=== PATIENT | male | born 1945 | race African-American/Black ===

== ENCOUNTER 2018-04-26 08:12 | Emergency (ER) | payer OTHER ==
[2018-04-26 08:53] LABS: #Basophils 0.1 thou/uL (0.0-0.2); #Lymphocytes 0.6 thou/uL (1.20-3.40); #Neutrophils 14.1 thou/uL (1.40-6.50); %Basophils 0.3 % (0.0-1.0); %Eosinophils 0.1 % (0.0-10.0); %Lymphocytes 3.8 % (21.0-51.0); %Monocytes 6.6 % (0.0-10.0); %Neutrophils 89.2 % (42.0-75.0); Hemoglobin 15.9 g/dL (14.0-18.0); Mean Corpuscular HGB CONC 30.7 g/dL (32.0-36.0); Mean Corpuscular Hemoglobin 27.5 pg (27.0-31.0); Mean Corpuscular Volume 89.6 fL (78.0-98.0); Mean Platelet Volume 8.9 fL (7.4-10.4); Platelet Count 219 thou/uL (130-400); RBC Distribution Width 12.3 % (11.5-14.5); Red Blood Cell (RBC) Count 5.76 mill/uL (4.70-6.10); White Blood Cell (WBC) Count 15.8 thou/uL (4.8-10.8)
[2018-04-26] MEDS ORDERED: Ondansetron PF 4 MG/2 ML Vial ONE (09:15)
[2018-04-26 09:17] LABS: ALT (SGPT) 9 U/L (8-55); AST (SGOT) 16 U/L (5-34); Albumin 4.2 g/dL (3.4-4.8); Alkaline Phosphatase 67 U/L (40-150); Anion Gap 16 mmol/L (10-20); BUN (Urea Nitrogen) 13 mg/dL (8.4-25.7); Bilirubin, Total 0.9 mg/dL (0.2-1.2); CK (CPK) 338 U/L (30-200); Calc. Creatinine Clearance 0 mL/min (70-130); Calcium 9.5 mg/dL (7.8-10.44); Carbon Dioxide 21 mmol/L (23-31); Chloride 107 mmol/L (98-107); Estimated GFR-MDRD Greater than 90; Globulin 3.8 g/dL (2.4-3.5); Glucose 124 mg/dL (83-110); Lipase 12 U/L (8-78); Potassium 3.8 mmol/L (3.5-5.1); Sodium 140 mmol/L (136-145)
--- NOTE | 2018-04-26 10:14 | RAD ---
RIGHT SHOULDER 3 VIEWS: Date: 04/26/18 PROVIDED CLINICAL HISTORY: Right shoulder pain. FINDINGS: There is no evidence for fracture. The glenohumeral relationship appears normal. Subacromial space ap pears preserved. Visualized right lung field appears clear. IMPRESSION: Unremarkable right shoulder radiographs. POS: [facility]
--- NOTE | 2018-04-26 10:21 | RAD ---
PORTABLE CHEST: Date: 04/26/18 PROVIDED CLINICAL HISTORY: Syncope and vomiting. FINDINGS: Cardiac and mediastinal silhouette is within normal limits. Lungs appear clear. No pleural fluid or p neumothorax apparent. IMPRESSION: No evidence for an acute cardiopulmonary process. POS: [facility]
== END 2018-04-26 11:20 ==
LOC: ERS 08:12
DX: R55 Syncope and collapse (principal); R11.2 Nausea with vomiting, unspecified; I10 Essential (primary) hypertension; I25.10 Atherosclerotic heart disease of native coronary artery without angina pectoris; M19.90 Unspecified osteoarthritis, unspecified site; E11.9 Type 2 diabetes mellitus without complications; Z79.899 Other long term (current) drug therapy; Z79.84 Long term (current) use of oral hypoglycemic drugs; Z79.82 Long term (current) use of aspirin
CPT/HCPCS: 36415; 71045; 80053; 82550; 83690; 84484; 85025; 93005; 94760; 96361; 96374; J2405

== ENCOUNTER 2018-06-11 15:50 | Observation (INO) | payer OTHER ==
[2018-06-11 16:37] LABS: #Eosinphils 0.1 thou/uL (0.0-0.7); #Lymphocytes 0.9 thou/uL (1.20-3.40); #Monocytes 1.3 thou/uL (0.11-0.59); #Neutrophils 12.3 thou/uL (1.40-6.50); %Basophils 0.3 % (0.0-1.0); %Eosinophils 0.6 % (0.0-10.0); %Monocytes 8.7 % (0.0-10.0); %Neutrophils 84.5 % (42.0-75.0); Hemoglobin 14.5 g/dL (14.0-18.0); Mean Corpuscular HGB CONC 31.4 g/dL (32.0-36.0); Mean Corpuscular Hemoglobin 28.6 pg (27.0-31.0); Mean Corpuscular Volume 90.9 fL (78.0-98.0); Mean Platelet Volume 8.8 fL (7.4-10.4); Platelet Count 216 thou/uL (130-400); RBC Distribution Width 12.3 % (11.5-14.5); Red Blood Cell (RBC) Count 5.05 mill/uL (4.70-6.10); White Blood Cell (WBC) Count 14.6 thou/uL (4.8-10.8)
[2018-06-11] MEDS ORDERED: Morphine 4 MG/ML VIAL ONE (16:42)
[2018-06-11 16:44] LABS: Bilirubin Negative (Negative); Blood, Urine Negative (Negative); Clarity CLEAR (Clear); Glucose, Urine (Dipstick) Negative (Negative); Leukocyte Negative (Negative); Nitrite Negative (Negative); Protein, Urine (Dipstick) Trace mg/dL (Neg-Trace); Specific Gravity, Urine 1.019 (1.002-1.036); pH, Urine 6.5 (5.0-9.0)
--- NOTE | 2018-06-11 16:55 | RAD ---
CHEST 1 VIEW: Date: 06/11/18 HISTORY: Chest pain. COMPARISON: Radiograph dated 04/26/18. FINDINGS: Lungs are mildly hypoinflated with vascular crowding. Heart size mildly prominent. Mild ectasia of th e aorta. No focal air space consolidation, pneumothorax, or effusion. IMPRESSION: Chronic findings. No acute intrathoracic abnormality. POS: [facility]
[2018-06-11 17:25] LABS: ALT (SGPT) 10 U/L (8-55); AST (SGOT) 17 U/L (5-34); Albumin 3.8 g/dL (3.4-4.8); Alkaline Phosphatase 61 U/L (40-150); Anion Gap 15 mmol/L (10-20); BUN (Urea Nitrogen) 13 mg/dL (8.4-25.7); Bilirubin, Total 0.7 mg/dL (0.2-1.2); Calc. Creatinine Clearance 0 mL/min (70-130); Calcium 9.3 mg/dL (7.8-10.44); Carbon Dioxide 22 mmol/L (23-31); Chloride 108 mmol/L (98-107); Estimated GFR-MDRD Greater than 90; Globulin 3.6 g/dL (2.4-3.5); Glucose 126 mg/dL (83-110); Lipase 24 U/L (8-78); Magnesium 2.3 mg/dL (1.6-2.6); Potassium 3.6 mmol/L (3.5-5.1); Protein, Total 7.4 g/dL (5.8-8.1); Sodium 141 mmol/L (136-145)
--- NOTE | 2018-06-11 21:29 | PDOC.FPRHP ---
- History of Present Illness Chief Complaint: CP History of Present Illness: 72yo M with pmh of CAD and NM [facility]. Pt had onset of nausea and vomiting this morning and while walking to the [facility] also had CP and diaphoresis. Pain was relieved with nitro before transfer. Sharp in quality , moderate in severity, no radiation, only exacerbated by laying down. Pt reports hx of NM 3 years ago and that he had cath done but no stents placed. ED Course: nitro, morphine 4mg - Allergies/Adverse Reactions Allergies Allergy/AdvReac Type Severity Reaction Status Date / Time No Known Drug Allergies Allergy Verified 06/11/18 22:38 - Home Medications Medication Instructions Recorded Confirmed Type Aspirin [Aspir-Low] 81 mg PO DAILY 06/11/18 06/11/18 History Bismuth Subsalicylate 2 tab PO BID 06/11/18 06/11/18 History [Pepto-Bismol] Ibuprofen 600 mg PO BID PRN 06/11/18 06/11/18 History Lisinopril [Prinivil] 20 mg PO DAILY 06/11/18 06/11/18 History Loperamide HCl [Loperamide] 2 mg PO TID PRN 06/11/18 06/11/18 History Ranitidine HCl 150 mg PO BID 06/11/18 06/11/18 History metFORMIN [Glucophage] 500 mg PO BID-WM 06/11/18 06/11/18 History Atorvastatin Calcium 40 mg PO DAILY #90 tablet 06/12/18 Rx Hydrochlorothiazide 25 mg PO BID #180 tab 06/12/18 Rx Ondansetron [Zofran ODT] 4 mg PO Q6H PRN tab 06/12/18 Rx - History PMHx: CAD, DM, OA, NM, HTN, HLD PSHx: hernia FHx: NM in mother at age 108 and grandfather at age 110 Social: denies hx or current use of tobacco/etoh/drugs - Review of Systems General: denies: fever/chills, fatigue Eyes: denies: eye pain, vision changes ENT: denies: nasal congestion, rhinorrhea Respiratory: denies: congestion, shortness of breath Cardiovascular: reports: chest pain. denies: palpitation Gastrointestinal: denies: nausea, vomiting Genitourinary: denies: incontinence, dysuria Skin: denies: rashes, lesions Musculoskeletal: denies: pain, tenderness Neurological: denies: numbness, seizure Psychological: denies: anxiety, depression - Vital signs BP: [138/88] HR: [55] RR: [16] Tmax: [98.2] Pox: [100]% on [ra] Wt: [70kg] - Physical Exam Constitutional: NAD, awake, alert and oriented HEENT: normocephalic and atraumatic, EOMI, grossly normal vision, grossly normal hearing Neck: supple, trachea midline Chest: other (sharp cp reproducible on palp to sternum) Heart: RRR, normal S1/S2, other (grade 2/6 holosystolic murmur) Lungs: CTAB, no respiratory distress Abdomen: soft, non-tender Musculoskeletal: normal structure, normal tone Neurological: no focal deficit, normal sensation Skin: no rash/lesions, good turgor Heme/Lymphatic: no unusual bruising or bleeding, no purpura Psychiatric: normal mood and affect, good judgment and insight FMR H&P: Results - Labs Result Diagrams: 06/11/18 16:26 06/12/18 04:28 Lab results: WBC 14.6 thou/uL (4.8-10.8) H 06/11/18 16:26 Hgb 14.5 g/dL (14.0-18.0) 06/11/18 16:26 Hct 46.0 % (42.0-52.0) 06/11/18 16:26 MCV 90.9 fL (78.0-98.0) 06/11/18 16:26 Plt Count 216 thou/uL (130-400) 06/11/18 16:26 Neutrophils % 84.5 % (42.0-75.0) H 06/11/18 16:26 Sodium 141 mmol/L (136-145) 06/11/18 16:26 Potassium 3.6 mmol/L (3.5-5.1) 06/11/18 16:26 Chloride 108 mmol/L (98-107) H 06/11/18 16:26 Carbon Dioxide 22 mmol/L (23-31) L 06/11/18 16:26 BUN 13 mg/dL (8.4-25.7) 06/11/18 16:26 Creatinine 0.92 mg/dL (0.7-1.3) 06/11/18 16:26 Glucose 126 mg/dL (83-110) H 06/11/18 16:26 Calcium 9.3 mg/dL (7.8-10.44) 06/11/18 16:26 Total Bilirubin 0.7 mg/dL (0.2-1.2) 06/11/18 16:26 AST 17 U/L (5-34) 06/11/18 16:26 ALT 10 U/L (8-55) 06/11/18 16:26 Alkaline Phosphatase 61 U/L (40-150) 06/11/18 16:26 Serum Total Protein 7.4 g/dL (5.8-8.1) 06/11/18 16:26 Albumin 3.8 g/dL (3.4-4.8) 06/11/18 16:26 Lipase 24 U/L (8-78) 06/11/18 16:26 Urine Ketones Negative mg/dL (Negative) 06/11/18 16:15 Urine Blood Negative (Negative) 06/11/18 16:15 Urine Nitrite Negative (Negative) 06/11/18 16:15 Ur Leukocyte Esterase Negative (Negative) 06/11/18 16:15 FMR H&P: A/P - Problem List (1) Atypical chest pain Status: Acute Code(s): R07.89 - OTHER CHEST PAIN (2) DM type 2 (diabetes mellitus, type 2) Status: Acute (3) HTN (hypertension) Status: Acute Code(s): I10 - ESSENTIAL (PRIMARY) HYPERTENSION (4) HLD (hyperlipidemia) Status: Acute Code(s): E78.5 - HYPERLIPIDEMIA, UNSPECIFIED (5) History of NM (myocardial infarction) Status: Acute Code(s): I25.2 - OLD MYOCARDIAL INFARCTION - Plan Atypical CP likely 2/2 costochondritis vs GI vs ACS A- with hx and exam likely musculoskeletal in etiology but considering patient hx of NM and CAD will need R/O ACS. first trop negative. EKG showing t wave inversions in V5 and V6 but do not have old EKG to compare to. Mg is 2.3. P- continue ASA - trend trops - npo at midnight for stress test tomorrow - start famotidine - GI cocktail DM -home meds and SSI with accuchecks HTN -home meds OA -MD aware DIET: HH, npo at midnight FLUID: SL CODE: FULL DISPO: OBS, less than 2 midnights FMR H&P: Upper Level - Pertinent history 72 yo AADre [facility] with a CC of chest pain that started while walking at approximately 1200. was relived by nitro he received at the [facility]. Has PMH of NM with no stenting. PMH HTN, HLD. ER: labs, CXR, EKG, ASA given [facility], - Pertinent findings Vitals WNL GEN: NAD CV: RRR, no murmur Chest: TTP along 3-5 constrosternal joints and intracostal spaces. Pulm: CTA-B Labs: Trop negative x2 EKG: NSR, t wave inversions in V4-V6. No old EKG for comparison. CXR: No acute processes. - Plan Date/Time: 06/11/182128 I, Sen Murphy MD, have evaluated this patient and agree with findings/plan as outlined by staff internist office based only resident. Pertinent changes/additions are listed here. 1. Atypical chest pain r/o ACS: Trop negative x2, likely MSK related, NM stress test tomorrow, PRN nitro available. 2. Chronic conditions per [facility]ing Bag Filler note 3. PPX: lovenox 4. Diet: HH, NPO at 0001 5. CODE FULL Dispo: obs, tele, <[address] Nieto. Addendum - Attending - Attending Attestation Date/Time: 06/15/18 2601 I personally evaluated the patient and discussed the management with Dr. Robles on evening of admission. I agree with the History, Examination, Assessment and Plan documented above with any addition or exceptions noted below.
[2018-06-11] MEDS ORDERED: Dextrose 50% Abboject 50 ML SYRINGE SLOW IVP PRN (21:48)
[2018-06-11] MEDS ORDERED: Calcium Carbonate 500 MG ChewTAB PO PRN (21:48)
[2018-06-11] MEDS ORDERED: HumaLOG 300 UNITS/3 ML VIAL SC PRN (21:48)
[2018-06-11] MEDS ORDERED: Ondansetron PF 4 MG/2 ML Vial IVP PRN (21:48)
[2018-06-11] MEDS ORDERED: Dextrose 5% in Water 1,000 ML IV PRN (21:48)
[2018-06-11] MEDS ORDERED: Aspirin 325 MG TAB PO SCH (21:48)
[2018-06-11] MEDS ORDERED: Lidocaine 2% Viscous Solution 10 ML, Aluminum & Magnesium Hydroxide 30 ML SSW SCH (21:48)
[2018-06-11 22:05] LABS: Troponin I Less than 0.010 ng/mL (< 0.028)
[2018-06-11 22:08] VITALS: BMI 21.7
--- NOTE | 2018-06-11 22:40 | PDOC.EVN ---
Event Note - Event Note Event Note: Date/Time: 06/11/186 I personally evaluated the patient and discussed the management with Dr. Robles. H&P is pedning. I will sign when available. I agree with the History, Examination, Assessment and Plan as discussed. Chest pain evalaution underway. Serial troponins with stress planned for tomorrow.
[2018-06-12 00:06] LABS: Troponin I Less than 0.010 ng/mL (< 0.028)
[2018-06-12 05:28] LABS: Anion Gap 13 mmol/L (10-20); BUN (Urea Nitrogen) 9 mg/dL (8.4-25.7); Calc. Creatinine Clearance 81 mL/min (70-130); Carbon Dioxide 25 mmol/L (23-31); Cardiac Risk 2.5 (Less than 4.5); Chloride 107 mmol/L (98-107); Cholesterol 123 mg/dl (< 200 Desired); Estimated GFR-MDRD Greater than 90; Glucose 88 mg/dL (83-110); HDL Cholesterol 49 mg/dL (>60 Neg Risk); LDL Cholesterol, Calculated 67 mg/dL; Sodium 141 mmol/L (136-145); Triglycerides 37 mg/dL (Less than 150)
--- NOTE | 2018-06-12 06:51 | PDOC.FM ---
- Subjective Subjective: Patient reports current 9/10 chest pain but TTP in abdomen on exam this AM. Also reports nausea and 2 episodes of diarrhea that began this AM. Denies any hematochezia, melena or mucus in stool. - Objective MAR Reviewed: Yes Vital Signs & Weight: Vital Signs (12 hours) Temp Pulse Resp BP BP Pulse Ox 06/12/18 03:55 66 18 172/101 H 97 06/11/18 21:51 98.1 F 51 L 16 156/92 H 98 Weight Weight 70.806 kg Result Diagrams: 06/11/18 16:26 06/12/18 04:28 Phys Exam - Physical Examination Constitutional: NAD HEENT: moist MMs Neck: supple, full ROM Respiratory: no wheezing, no rales, no rhonchi, clear to auscultation bilateral Cardiovascular: RRR, no significant murmur Gastrointestinal: soft, positive bowel sounds TTP in epigatric area & B/L upper quadrants; no guarding or rebound Musculoskeletal: no edema, pulses present Neurological: non-focal, moves all 4 limbs Psychiatric: normal affect, A&O x 3 Skin: no rash, normal turgor Dx/Plan (1) Atypical chest pain Code(s): R07.89 - OTHER CHEST PAIN Status: Acute (2) DM type 2 (diabetes mellitus, type 2) Status: Acute (3) HLD (hyperlipidemia) Code(s): E78.5 - HYPERLIPIDEMIA, UNSPECIFIED Status: Acute (4) HTN (hypertension) Code(s): I10 - ESSENTIAL (PRIMARY) HYPERTENSION Status: Acute (5) History of DC (myocardial infarction) Code(s): I25.2 - OLD MYOCARDIAL INFARCTION Status: Acute - Plan Plan: Atypical CP 2/2 costochondritis vs GI vs ACS - History and exam this AM more suspicious for GI etiology; however, considering patient h/o DC and known CAD will r/o ACS. Trops negative x3. EKG on admission did show t wave inversions in V5 and V6 but do not have old EKG to compare to. Mg is 2.3. TSH pending. Will get a stat EKG & troponin this AM due to severity of pain patient is reporting this AM but suspect most likely 2/2 viral gastroenteritis given new nausea & diarrhea. Will give tylenol for pain due to stress test this AM. - Will continue ASA & famotidine - npo, meds with sips for stress test tomorrow DM -home meds and SSI with ACHS accuchecks HTN -home meds OA -MD aware, tylenol PRN for pain. CAD - Aware, will continue home meds. h/o DC - Aware, will continue home meds. DIET: npo, meds with sips IVFs: SL DVT PPx: lovenox GI PPx: famotidine Abx: none CODE: FULL DISPO: Likely d/c later today pending stress this AM. Addendum - Attending - Attending Attestation Date/Time: 06/12/18 1020 I personally evaluated the patient and discussed the management with Dr. Parker. I agree with the History, Examination, Assessment and Plan documented above with any addition or exceptions noted below. The patient presented with chest pain. He will have a stress test this morning. If negative will likely d/c. He had some nausea vomiting and diarrhea but he states he has not had anymore symptoms this morning.
[2018-06-12] MEDS: Ondansetron ODT 4 MG TAB PO PRN ×2 (08:34→16:58)
[2018-06-12] MEDS ORDERED: Aspirin 81 mg Enteric Coated Tablet PO SCH (09:00)
[2018-06-12] MEDS ORDERED: Famotidine 20 MG TAB PO SCH (09:00)
[2018-06-12] MEDS ORDERED: Enoxaparin Sodium 40 MG/0.4 ML SYRINGE SC SCH (09:00)
[2018-06-12] MEDS ORDERED: Hydrochlorothiazide 25 MG TAB PO SCH ×2 (09:00→16:15)
[2018-06-12] MEDS ORDERED: Lisinopril 20 MG TAB PO SCH (09:00)
[2018-06-12] MEDS ORDERED: Non-Formulary Item 1 EACH (Ranitidine Hcl [Ranitidine Hcl] 150 MG) PO SCH (09:00)
[2018-06-12] MEDS: metFORMIN 500 MG TAB PO SCH ×2 (09:19→16:59)
[2018-06-12] MEDS ORDERED: hydrALAZINE 20 MG/ML VIAL SLOW IVP PRN (09:27)
[2018-06-12] MEDS ORDERED: ADENOSINE 60 MG/20 ML VIAL ONE (10:07)
[2018-06-12 10:43] LABS: Troponin I Less than 0.010 ng/mL (< 0.028)
--- NOTE | 2018-06-12 15:03 | EKG ---
Test Reason : ? Blood Pressure : / mmHG Vent. Rate : 061 BPM Atrial Rate : 061 BPM P-R Int : 180 ms QRS Dur : 090 ms QT Int : 412 ms P-R-T Axes : 070 024 042 degrees QTc Int : 414 ms Normal sinus rhythm T wave abnormality, consider anterior ischemia Abnormal ECG Confirmed by YURIDIA SIMON ([id number]) on 06/12/2018 3:02:54 PM Referred By: JOSELIN *r Confirmed By:YURIDIA SIMON
--- NOTE | 2018-06-12 15:49 | NM ---
MYOCARDIAL PERFUSION AND QUANTITATIVE GATED SPECT STUDY: HISTORY: Chest pain. DOSE: 27.0 mCi of Technetium 99m Cardiolite for the stress portion of the exam and 9 mCi for the resting po rtion of the exam. The patient was stressed using 39.7 mCi of adenosine given IV. Images demonstrate uptake of the radioisotope on stress and resting images. No definite evidence of reversible defect seen on the resting images. No significant evidence of myocardial ischemia or scar seen. Ejection fraction measures 53%. IMPRESSION: No evidence of myocardial ischemia or scar. POS: [facility]
[2018-06-12 16:09] VITALS: TEMP 98.7
[2018-06-12 18:30] VITALS: BP 169/109
[2018-06-12] MEDS ORDERED: Pravastatin Sodium 20 MG TAB PO SCH (21:00)
--- NOTE | 2018-06-13 21:35 | EKG ---
Test Reason : Blood Pressure : / mmHG Vent. Rate : 070 BPM Atrial Rate : 070 BPM P-R Int : 144 ms QRS Dur : 078 ms QT Int : 442 ms P-R-T Axes : 038 -09 -37 degrees QTc Int : 477 ms Normal sinus rhythm Nonspecific T wave abnormality Prolonged QT Abnormal ECG Confirmed by VINEET ANGELES ([id number]), non linear editor NAT LOCKWOOD ([id number]) on 06/13/2018 9:34:38 PM Referred By: Confirmed By:VINEET ANGELES
--- NOTE | 2018-06-15 09:36 | DIS ---
DATE OF ADMISSION: 06/11/2018 DATE OF DISCHARGE: 06/12/2018 RESIDENT: Daisy Parker MD ADMITTING ATTENDING: Richard Nieto MD DISCHARGE ATTENDING: Reyna Kelley MD CONSULT: None. PROCEDURES: 1. Chest x-ray on 06/11/2018, which showed chronic findings including mildly hyperinflated lungs with vascular crowding as well as mildly prominent heart size and mild ectasia of the aorta. No acute intrathoracic abnormality noted. 2. Nuclear stress test on 06/12/2018, which showed no evidence of myocardial ischemia or scar with an EF of approximately 53%. PRIMARY DIAGNOSES: 1. Atypical chest pain, secondary to suspected viral gastroenteritis. 2. Hypertensive urgency. SECONDARY DIAGNOSES: 1. Hypertension. 2. Hyperlipidemia. 3. Diabetes mellitus type 2. 4. History of myocardial infarction. 5. Osteoarthritis. 6. Coronary artery disease. DISCHARGE MEDICATIONS: 1. Loperamide 2 mg p.o. t.i.d. p.r.n. 2. Ibuprofen 600 mg p.o. b.i.d. p.r.n. 3. Ranitidine 150 mg p.o. b.i.d. 4. Pepto-Bismol 262 mg two tabs p.o. b.i.d. 5. Aspirin 81 mg p.o. daily. 6. Metformin 500 mg p.o. b.i.d. with meals. 7. Lisinopril 20 mg p.o. daily. 8. Zofran 4 mg every 6 hours p.r.n. 9. Atorvastatin 40 mg p.o. daily. 10. Hydrochlorothiazide 25 mg p.o. b.i.d. DISCONTINUED MEDICATIONS: 1. Hydrochlorothiazide 25 mg p.o. daily. 2. Pravastatin 20 mg that was discontinued. HOSPITAL COURSE: The patient is a 72-year-old -[place] gentleman with a past medical history significant for known coronary artery disease and history of myocardial infarction, hypertension and diabetes mellitus, who was [facility] with a chief complaint of chest pain. The patient reported feeling sharp substernal chest pain early in the morning of the date of presentation with no radiation, associated nausea, vomiting, or diaphoresis. He was therefore brought to the emergency department for further evaluation. On presentation to the ED, the patient's vitals were within normal limits with the exception of a mildly elevated blood pressure of 139/91. His EKG obtained in the emergency department noted normal sinus rhythm with nonspecific T-wave abnormality and prolonged QT. Basic lab work including CBC, D-dimer, CMP, and troponin I were obtained, which were within normal limits with the exception of an elevated leukocytosis of 14.6. Urinalysis was also obtained, which was within normal limits. Chest x-ray was also taken, which noted no acute cardiopulmonary abnormalities. However, given the patient's significant cardiac history, it was decided to admit the patient to telemetry for close observation overnight with plans for a nuclear stress test the following morning. The following morning, the patient was complaining of recurrent chest pain; however, on exam, the pain was noted to actually be in his epigastric area. A repeat EKG and troponin I level were obtained and the EKG again noted normal sinus rhythm with a T-wave abnormality, unchanged from his initial EKG and his troponin I level was within normal limits. The patient, therefore, proceeded with a nuclear stress test later that morning, which did not note any evidence of myocardial ischemia or scar. The patient was therefore cleared for discharge back to [facility]. Regarding the patient's hypertensive urgency, his blood pressures while on the floor did reach urgency range up to 202/115. However, the patient was asymptomatic at this time and it was therefore decided to give him an additional p.m. dose of his normal 25 mg of HCTZ. Thus, by the time of discharge, his blood pressure had gone below urgency range at 169/109 and the patient was cleared for discharge back to [facility] with close monitoring of his blood pressure and slow titration of his blood pressure medications on an outpatient basis p.r.n. Regarding the patient's leukocytosis, this is most likely secondary to a viral gastroenteritis as the patient endorsed epigastric pain with associated nausea, vomiting, and two episodes of diarrhea in the morning on the date of discharge. The patient was therefore sent home with instructions to resume his loperamide p.r.n. for the diarrheal illness. DISPOSITION: Stable. DISCHARGE INSTRUCTIONS: 1. Location: [facility]. 2. Diet: Heart healthy diet, low-sodium diet, consistent carb diet or diabetic diet. 3. Activity: Activity as tolerated. No restrictions. 4. Followup: The patient was instructed to follow up with his physician at the [facility] as soon as possible upon discharge. Job ID: [id number]
== END 2018-06-12 19:27 ==
LOC: ERS 15:50 → 2SW 21:45
PROVIDERS: ADMIT Family Medicine; ATTEND Family Medicine
DX: R07.89 Other chest pain (principal); I25.10 Atherosclerotic heart disease of native coronary artery without angina pectoris; I25.2 Old myocardial infarction; I10 Essential (primary) hypertension; E11.9 Type 2 diabetes mellitus without complications; E78.5 Hyperlipidemia, unspecified; M19.90 Unspecified osteoarthritis, unspecified site; Z79.84 Long term (current) use of oral hypoglycemic drugs; Z79.82 Long term (current) use of aspirin; Z79.899 Other long term (current) drug therapy
CPT/HCPCS: 36415; 36416; 71045; 78452; 80048; 80053; 80061; 81003; 83690; 83735; 84439; 84443; 84484; 85025; 85379; 93005; 93010; 93017; 96372; 96374; 96375; A9500; G0378; J0153; J0360; J1650; J2270; Q0162

== ENCOUNTER 2018-06-13 08:53 | Emergency (ER) | payer OTHER ==
[2018-06-13] MEDS ORDERED: Nitroglycerin 2% Ointment 1 INCH/1 GM Packet ONE (09:20)
[2018-06-13 09:38] LABS: #Lymphocytes 1.1 thou/uL (1.20-3.40); #Monocytes 0.7 thou/uL (0.11-0.59); #Neutrophils 5.3 thou/uL (1.40-6.50); %Basophils 0.1 % (0.0-1.0); %Eosinophils 0.2 % (0.0-10.0); %Lymphocytes 15.6 % (21.0-51.0); %Monocytes 9.9 % (0.0-10.0); %Neutrophils 74.2 % (42.0-75.0); Hemoglobin 15.4 g/dL (14.0-18.0); Mean Corpuscular Volume 90.1 fL (78.0-98.0); Platelet Count 236 thou/uL (130-400); RBC Distribution Width 12.2 % (11.5-14.5); White Blood Cell (WBC) Count 7.2 thou/uL (4.8-10.8)
[2018-06-13 09:59] LABS: ALT (SGPT) 11 U/L (8-55); AST (SGOT) 15 U/L (5-34); Albumin 4.2 g/dL (3.4-4.8); Alkaline Phosphatase 66 U/L (40-150); Anion Gap 17 mmol/L (10-20); BUN (Urea Nitrogen) 13 mg/dL (8.4-25.7); Bilirubin, Total 0.7 mg/dL (0.2-1.2); CK (CPK) 161 U/L (30-200); Calc. Creatinine Clearance 0 mL/min (70-130); Calcium 9.8 mg/dL (7.8-10.44); Carbon Dioxide 29 mmol/L (23-31); Chloride 101 mmol/L (98-107); Estimated GFR-MDRD Greater than 90; Glucose 117 mg/dL (83-110); Lipase 6 U/L (8-78); Potassium 3.7 mmol/L (3.5-5.1); Protein, Total 8.2 g/dL (5.8-8.1); Sodium 143 mmol/L (136-145)
--- NOTE | 2018-06-13 10:29 | RAD ---
SINGLE VIEW OF THE CHEST: COMPARISON: 06/11/2018. HISTORY: Chest pain. FINDINGS: Single view of the chest shows a normal sized cardiomediastinal silhouette. There is no evidence of c onsolidation, mass, or pleural effusion. The bones are unremarkable. IMPRESSION: No evidence of acute cardiopulmonary disease. POS: [facility]
[2018-06-13] MEDS ORDERED: Morphine 4 MG/ML VIAL ONE (10:35)
== END 2018-06-13 13:42 | disposition short-term general hospital (02) ==
LOC: ERS 08:53
DX: R07.2 Precordial pain (principal); I16.0 Hypertensive urgency; I10 Essential (primary) hypertension; I25.10 Atherosclerotic heart disease of native coronary artery without angina pectoris; E11.9 Type 2 diabetes mellitus without complications; Z79.899 Other long term (current) drug therapy; Z79.84 Long term (current) use of oral hypoglycemic drugs; Z79.82 Long term (current) use of aspirin
CPT/HCPCS: 36415; 71045; 80053; 82550; 83690; 83880; 84484; 85025; 93005; 96374; J2270

== ENCOUNTER 2018-12-27 11:55 | Emergency (ER) | payer OTHER ==
[2018-12-27] MEDS ORDERED: Ondansetron PF 4 MG/2 ML Vial ONE (12:43)
[2018-12-27] MEDS ORDERED: Morphine 4 MG/ML VIAL ONE (12:43)
[2018-12-27] MEDS ORDERED: ISOVUE-370 76%-LOCM 1 ML ONE (12:53)
[2018-12-27 13:27] LABS: #Eosinphils 0.1 thou/uL (0.0-0.7); #Lymphocytes 1.3 thou/uL (1.20-3.40); #Monocytes 1.2 thou/uL (0.11-0.59); #Neutrophils 7.2 thou/uL (1.40-6.50); %Basophils 0.3 % (0.0-1.0); %Eosinophils 0.8 % (0.0-10.0); %Lymphocytes 13.7 % (21.0-51.0); %Monocytes 12.2 % (0.0-10.0); %Neutrophils 73.1 % (42.0-75.0); Hemoglobin 15.3 g/dL (14.0-18.0); Mean Corpuscular HGB CONC 32.2 g/dL (32.0-36.0); Mean Corpuscular Hemoglobin 28.5 pg (27.0-31.0); Mean Corpuscular Volume 88.3 fL (78.0-98.0); Mean Platelet Volume 8.8 fL (7.4-10.4); Platelet Count 232 thou/uL (130-400); Red Blood Cell (RBC) Count 5.37 mill/uL (4.70-6.10); White Blood Cell (WBC) Count 9.8 thou/uL (4.8-10.8)
[2018-12-27 13:48] LABS: ALT (SGPT) 11 U/L (8-55); AST (SGOT) 17 U/L (5-34); Albumin 4.1 g/dL (3.4-4.8); Alkaline Phosphatase 77 U/L (40-150); Anion Gap 13 mmol/L (10-20); BUN (Urea Nitrogen) 15 mg/dL (8.4-25.7); Bilirubin, Total 0.8 mg/dL (0.2-1.2); CK (CPK) 254 U/L (30-200); Calc. Creatinine Clearance 0 mL/min (70-130); Calcium 9.8 mg/dL (7.8-10.44); Carbon Dioxide 29 mmol/L (23-31); Chloride 103 mmol/L (98-107); Estimated GFR-MDRD 88; Globulin 3.8 g/dL (2.4-3.5); Glucose 110 mg/dL (83-110); Lipase 11 U/L (8-78); Potassium 3.6 mmol/L (3.5-5.1); Protein, Total 7.9 g/dL (5.8-8.1); Sodium 141 mmol/L (136-145)
--- NOTE | 2018-12-27 14:27 | CT ---
EXAM: CT Abdomen Pelvis W Con PROVIDED CLINICAL HISTORY: Vomiting COMPARISON: None FINDINGS: The visualized lung bases are free of significant opacity. The liver, spleen, pancreas, kidneys and adrenal glands demonstrate an unremarkable CT appearance. There is marked distention of the stomach and proximal small bowel. Dilation of small bowel loops up to 4.5 cm. There is transition zone in the left mid abdomen with decompressed loops of distal small bowel seen. Stool is noted throughout the colon fluid is seen within portion of the colon. There is l ikely a small amount of free intraperitoneal fluid. There is no evidence for pneumatosis or portal venous gas. No evidence for pneumoperitoneum. The regional major vascular structures appear unremarkable. The osseous structures demonstrate no concerning lytic or blastic lesions. IMPRESSION: Findings compatible with small bowel obstruction.
[2018-12-27 15:00] LABS: Bilirubin Negative (Negative); Blood, Urine Negative (Negative); Clarity Clear (Clear); Glucose, Urine (Dipstick) Normal (Negative); Leukocyte Negative Leu/uL (Negative); Nitrite Negative (Negative); Protein, Urine (Dipstick) 10 mg/dL (Neg-Trace); Urobilinogen Normal mg/dL (Less than 2)
--- NOTE | 2018-12-27 15:23 | RAD ---
EXAM: Portable chest PROVIDED CLINICAL HISTORY: Small bowel traction COMPARISON: 06/13/2018 FINDINGS: Cardiac silhouette appears enlarged, which may be least partially on the basis of portable technique. An enteric catheter is noted, the tip of which projects over the left upper quadrant. The lung apices are not included on this image, limiting evaluation. Visualized lung parenchyma appears clear. IMPRESSION: No evidence for an acute cardiopulmonary process with limitations as above.
== END 2018-12-27 19:29 | disposition short-term general hospital (02) ==
LOC: ERS 11:55
DX: K56.699 Other intestinal obstruction unspecified as to partial versus complete obstruction (principal); I10 Essential (primary) hypertension; I25.10 Atherosclerotic heart disease of native coronary artery without angina pectoris; M19.90 Unspecified osteoarthritis, unspecified site; Z79.82 Long term (current) use of aspirin; Z79.84 Long term (current) use of oral hypoglycemic drugs; Z79.899 Other long term (current) drug therapy; Z86.73 Personal history of transient ischemic attack (TIA), and cerebral infarction without residual deficits
CPT/HCPCS: 71045; 74177; 80053; 81003; 82550; 83690; 84484; 85025; 93005; 96361; 96374; 96375; J2270; J2405; Q9966

== ENCOUNTER 2018-12-31 21:35 | Inpatient (IN) | payer OTHER ==
[~2018-12-31 21:35] MED LIST: ISOVUE-370 76%-LOCM 1 ML ONE
[2018-12-31] MEDS ORDERED: Morphine 4 MG/ML VIAL ONE (22:09)
[2018-12-31] MEDS ORDERED: Ondansetron PF 4 MG/2 ML Vial ONE (22:09)
[2018-12-31 22:29] LABS: ALT (SGPT) 24 U/L (8-55); AST (SGOT) 31 U/L (5-34); Albumin 3.8 g/dL (3.4-4.8); Alkaline Phosphatase 66 U/L (40-110); Anion Gap 14 mmol/L (10-20); BUN (Urea Nitrogen) 12 mg/dL (8.4-25.7); Bilirubin, Total 0.4 mg/dL (0.2-1.2); Calc. Creatinine Clearance 0 mL/min (70-130); Calcium 9.3 mg/dL (7.8-10.44); Carbon Dioxide 26 mmol/L (23-31); Chloride 103 mmol/L (98-107); Estimated GFR-MDRD Greater than 90; Glucose 103 mg/dL (83-110); Lipase 20 U/L (8-78); Protein, Total 7.8 g/dL (5.8-8.1); Sodium 139 mmol/L (136-145)
[2018-12-31 22:34] LABS: #Eosinphils 0.2 thou/uL (0.0-0.7); #Lymphocytes 2.9 thou/uL (1.20-3.40); #Monocytes 0.8 thou/uL (0.11-0.59); #Neutrophils 6.9 thou/uL (1.40-6.50); %Eosinophils 2.1 % (0.0-10.0); %Lymphocytes 26.4 % (21.0-51.0); %Monocytes 7.3 % (0.0-10.0); %Neutrophils 64.2 % (42.0-75.0); Hemoglobin 14.4 g/dL (14.0-18.0); Mean Corpuscular HGB CONC 32.9 g/dL (32.0-36.0); Mean Corpuscular Hemoglobin 28.8 pg (27.0-31.0); Mean Corpuscular Volume 87.4 fL (78.0-98.0); Mean Platelet Volume 9.6 fL (7.4-10.4); Platelet Count 228 thou/uL (130-400); Red Blood Cell (RBC) Count 4.99 mill/uL (4.70-6.10); White Blood Cell (WBC) Count 10.8 thou/uL (4.8-10.8)
--- NOTE | 2018-12-31 22:53 | CT ---
EXAM: CT ABDOMEN AND PELVIS HISTORY: Pain. COMPARISON: 12/27/2018 Procedure: Multiple contiguous axial images were obtained and a CT of the abdomen and pelvis with IV contrast. C oronal reformats were performed. FINDINGS: Lower Chest: Chronic changes in the lung bases Vessels: Stable aorta Heart: Normal heart size. No significant pericardial fluid Abdomen: Portal vein:Patent Gallbladder: No calcified gallstones. Normal caliber wall. Liver: within normal limits. Pancreas: within normal limits. Spleen: within normal limits. Adrenals: within normal limits. Kidneys: Symmetric enhancement. No obstructive uropathy. Peritoneum: No ascites or free air, no fluid collection. Bowel: Limited evaluation due to lack of oral contrast hydration. There is significant distention of the stomach. There are dilated fluid-filled loops of the duodenum and jejunum. The mid small bowel loops are also prominent with mucosal thickening. The distal small bowel loops do appear to be decomp ressed. Scattered fecal material in the cecum, ascending colon, transverse colon. Descending colon and sigmoid colon are contrast. Mesentery and Retroperitoneum: No enlarged mesenteric or retroperitoneal lymph nodes. Abdominal Wall: within normal limits. Pelvis: Reproductive Organs: Unremarkable prostate gland Pelvis: No mass, lymphadenopathy, free air or free fluid. Bladder: within normal limits. Bones: within normal limits. IMPRESSION: Markedly gaseous distention along with prominent fluid-filled small bowel loops. There is evidence of bowel dilatation and mucosal thickening. Exact transition point is difficult to determine but there is evidence of a small bowel obstruction. Findings are similar to the CT performed on 12/27/2018
[2019-01-01] MEDS ORDERED: Dextrose 5% in Water 1,000 ML IV PRN (05:15)
[2019-01-01] MEDS ORDERED: Dextrose 50% Abboject 50 ML SYRINGE SLOW IVP PRN (05:15)
[2019-01-01] MEDS ORDERED: Insulin Regular 300 UNITS/3 ML VIAL SC PRN ×2 (05:15)
[2019-01-01] MEDS ORDERED: Calcium Carbonate 500 MG ChewTAB PO PRN (05:16)
[2019-01-01] MEDS ORDERED: Acetaminophen 650 MG Suppository PR PRN (05:16)
[2019-01-01] MEDS ORDERED: Enalaprilat Dihydrate 1.25 MG/ML VIAL SLOW IVP PRN (05:20)
[2019-01-01 06:24] LABS: Lactic Acid 1.3 mmol/L (0.5-2.2)
[2019-01-01 06:25] LABS: Anion Gap 14 mmol/L (10-20); BUN (Urea Nitrogen) 12 mg/dL (8.4-25.7); Calc. Creatinine Clearance 0 mL/min (70-130); Calcium 8.9 mg/dL (7.8-10.44); Carbon Dioxide 23 mmol/L (23-31); Chloride 106 mmol/L (98-107); Estimated GFR-MDRD Greater than 90; Glucose 109 mg/dL (83-110); Magnesium 2.1 mg/dL (1.6-2.6); Sodium 139 mmol/L (136-145)
--- NOTE | 2019-01-01 07:24 | HP ---
PRIMARY CARE PHYSICIAN: The patient is an inmate. CHIEF COMPLAINT: Abdominal discomfort. HISTORY OF PRESENT ILLNESS: The patient is a 73-year-old male with recent small-bowel obstruction, presented to the hospital with above complaints. Yesterday, the patient was discharged from [facility]. He was admitted five days ago with a diagnosis of small-bowel obstruction that was managed conservatively. He started having abdominal discomfort after eating, followed by nausea and vomiting. He had several episodes of vomiting. The abdominal pain was generalized, mainly on the right side. It was constant with intermittent waxing. He had a normal bowel movement this morning. He denies any hematemesis, melena, hematochezia, jaundice, or weight loss. PAST MEDICAL HISTORY: 1. Diabetes mellitus, type 2. 2. Hypertension. 3. Hyperlipidemia. 4. Coronary artery disease, status post IN. 5. Degenerative joint disease. 6. Hospitalization for small-bowel obstruction from 27 December 2018 to 31 December 2018 at [facility]. 7. The patient is legally blind. 8. History of CVA. 9. History of abdominal aortic aneurysm. PAST SURGICAL HISTORY: Hernia surgeries. ALLERGIES: NO KNOWN DRUG ALLERGIES. CURRENT MEDICATIONS: The patient is unable to recall any of his home medications. According to ER report, the patient is on, 1. Aspirin. 2. Hydrochlorothiazide. 3. Lisinopril. 4. Metformin. 5. Pravastatin. 6. Ranitidine. SOCIAL HISTORY: No current use of tobacco, alcohol, or drug use. He makes his own decision with the help of his family. He is full code. FAMILY HISTORY: Mother had IN at the age of 108. Grandfather had IN at the age of 110. REVIEW OF SYSTEMS: All other review of systems reviewed and were found negative. PHYSICAL EXAMINATION: VITAL SIGNS: Temperature 97.9, respirations of 16, pulse of 53, blood pressure of 150/92, and O2 saturation 99% on room air. GENERAL: A 73-year-old male, in no apparent distress. NG tube in place. HEENT: Head, atraumatic and normocephalic. Sclerae anicteric. Dry mucous membranes. No oral lesion. NECK: Supple. No JVD. No carotid bruit. LUNGS: Clear to auscultation bilaterally. No wheezing, rales, or rhonchi. HEART: S1 and S2 present. Regular rate and rhythm. No rubs or gallops. ABDOMEN: Soft. There is diffuse tenderness in all the quadrants, mainly on the right. No guarding rigidity. Bowel sounds were present. EXTREMITIES: No edema or calf tenderness. NEUROLOGY: Grossly nonfocal. Moves all 4 extremities. PSYCHIATRY: Alert, awake, and oriented x3. SKIN: Warm and dry. LYMPH NODES: No palpable lymph nodes in the neck. PERIPHERAL VASCULAR: Radial pulses are palpable bilaterally. MUSCULOSKELETAL: No joint swelling or tenderness. LABORATORY FINDINGS: CBC showed WBC 10.8 with hemoglobin 14.4, hematocrit 43.7, and platelets of 228. Chemistry showed sodium 139, potassium 4, chloride 103, bicarb 26, BUN 12, and creatinine 0.85. LFTs in normal range. Lipase was 20. IMAGING DATA: CT scan of the abdomen and pelvis by my review was consistent with markedly gaseous distention along with prominent fluid-filled small bowel loop. IMPRESSION: 1. Abdominal pain with nausea and vomiting secondary to small-bowel obstruction. 2. Coronary artery disease, status post myocardial infarction. 3. History of cerebrovascular accident. 4. Hypertension. 5. Diabetes mellitus, type 2. 6. Hyperlipidemia. 7. Glaucoma. 8. Legal blindness. 9. Degenerative joint disease. PLAN: The patient will be monitored on the surgical floor. General Surgery will be consulted. We will continue NG tube. IV PPIs. We will keep the patient n.p.o. Insulin sliding scale. Monitor labs on a daily basis. Vital signs per routine. We will resume home medications once tolerating p.o. We will add p.r.n. antihypertensives. Walking program. Plan of care was discussed with the patient in detail. He stated understanding. Job ID: [id number]
[2019-01-01] MEDS: Pantoprazole 40 MG VIAL IVP SCH ×2 (08:15→21:52)
[2019-01-01] MEDS: 1/2 NS w/KCL 20 mEq 1,000 ML IV SCH ×3 (08:15→21:51)
[2019-01-01] MEDS ORDERED: Famotidine/PF 20 mg/2ml Vial SLOW IVP SCH (09:00)
[2019-01-01 09:50] VITALS: BMI 20.6
[2019-01-01] MEDS ORDERED: Acetaminophen 1,000 MG in Premix Bag 1 BAG IVPB PRN (14:22)
[2019-01-01] MEDS ORDERED: Ketorolac Tromethamine 30 MG/ML VIAL IVP PRN (14:22)
--- NOTE | 2019-01-01 15:46 | RAD ---
Acute abdominal series INDICATION: Follow-up small bowel obstruction COMPARISON: CT the abdomen and pelvis dated December 31, 2018 FINDINGS: CHEST: LUNGS: Clear. Cardiomediastinal silhouette: There is moderate cardiomegaly. Pleural effusion or pneumothorax: Negative. Pneumoperitoneum: Negative. ABDOMEN: There is been interval placement of gastric catheter in the region of the gastric fundus. Gas-filled dilated loops of small bowel remain within the central abdomen. Speckled densities likely related to ingestion of bismuth product is seen within the region of colon. There is a moderate amount of ret ained stool within the colon. There is stable postsurgical change of a left inguinal hernia repair. Excreted IV contrast is present within the bladder. There is scattered degenerative change. Additional findings: None. IMPRESSION: 1. Stable gas-filled loops of small bowel within the upper central abdomen. 2. Interval placement of a gastric catheter now projecting the region of the gastric fundus. 3. Stable moderate amount of retained stool within colon.
--- NOTE | 2019-01-01 19:39 | RAD ---
SMALL BOWEL FOLLOW THROUGH: 01/01/19 HISTORY: Small bowel obstruction. At one hour, dilated proximal small bowel loops are seen. The contrast is only seen to more of the pr oximal ileum level. On a subsequent three hour film, contrast is now seen within the colon. The more distal small bowel loops do not appear dilated. IMPRESSION: Dilated proximal small bowel loops transition to more normal mid to distal ileum. At the three hour f ilm, contrast is seen throughout the colon. POS: JLUIS
[2019-01-01] MEDS ORDERED: Latanoprost 0.005% Ophth Soln 2.5 ml Bottle EA EYE SCH (21:00)
[2019-01-01] MEDS ORDERED: Enoxaparin Sodium 40 MG/0.4 ML SYRINGE SC SCH (21:00)
--- NOTE | 2019-01-01 21:30 | PRG ---
DATE OF SERVICE: 01/01/2019 SUBJECTIVE: Mr. Samuel has had a small-bowel follow-through today within 3 hours. Contrast is seen in his colon. There is some proximally dilated small bowel loops with transition to normal caliber distally without abrupt transition zone. He has not had any abdominal surgeries that would cause adhesive process. At this point, I would recommend removal of his NG tube and advance the diet as tolerated. Hopefully, we can avoid any operations. Job ID: [id number]
[2019-01-01] MEDS: Dorzolamide HCl 2% Ophth Soln 10 ml Bottle EA EYE SCH (21:51)
[2019-01-01] MEDS: Timolol 0.5% Ophth Soln 5 ml Bottle EA EYE SCH (21:51)
[2019-01-01] MEDS: Carvedilol 3.125 MG TAB PO SCH (21:51)
[2019-01-02 04:07] LABS: #Basophils 0.1 thou/uL (0.0-0.2); #Eosinphils 0.3 thou/uL (0.0-0.7); #Lymphocytes 2.7 thou/uL (1.20-3.40); #Monocytes 0.6 thou/uL (0.11-0.59); #Neutrophils 3.5 thou/uL (1.40-6.50); %Basophils 1.1 % (0.0-1.0); %Eosinophils 4.5 % (0.0-10.0); %Lymphocytes 37.5 % (21.0-51.0); %Monocytes 8.7 % (0.0-10.0); %Neutrophils 48.3 % (42.0-75.0); Mean Corpuscular HGB CONC 32.9 g/dL (32.0-36.0); Mean Corpuscular Hemoglobin 28.6 pg (27.0-31.0); Mean Corpuscular Volume 86.9 fL (78.0-98.0); Mean Platelet Volume 9.3 fL (7.4-10.4); Platelet Count 228 thou/uL (130-400); Red Blood Cell (RBC) Count 4.91 mill/uL (4.70-6.10); White Blood Cell (WBC) Count 7.2 thou/uL (4.8-10.8)
[2019-01-02 04:42] LABS: ALT (SGPT) 28 U/L (8-55); AST (SGOT) 24 U/L (5-34); Albumin 3.5 g/dL (3.4-4.8); Alkaline Phosphatase 61 U/L (40-110); Anion Gap 13 mmol/L (10-20); BUN (Urea Nitrogen) 12 mg/dL (8.4-25.7); Bilirubin, Total 0.6 mg/dL (0.2-1.2); Calc. Creatinine Clearance 64 mL/min (70-130); Calcium 8.6 mg/dL (7.8-10.44); Carbon Dioxide 21 mmol/L (23-31); Chloride 108 mmol/L (98-107); Estimated GFR-MDRD Greater than 90; Globulin 3.8 g/dL (2.4-3.5); Glucose 124 mg/dL (83-110); Phosphorus 2.2 mg/dL (2.3-4.7); Potassium 4.4 mmol/L (3.5-5.1); Protein, Total 7.3 g/dL (5.8-8.1); Sodium 138 mmol/L (136-145)
[2019-01-02] MEDS ORDERED: Polyethylene Glycol 3350 17 GM Packet PO SCH (09:00)
[2019-01-02] MEDS ORDERED: Aspirin 81 mg Enteric Coated Tablet PO SCH (09:00)
[2019-01-02] MEDS ORDERED: Atorvastatin Calcium 40 MG TAB PO SCH (09:00)
[2019-01-02] MEDS ORDERED: Hydrochlorothiazide 25 MG TAB PO SCH (09:00)
[2019-01-02] MEDS ORDERED: Lisinopril 5 MG TAB PO SCH (09:00)
[2019-01-02] MEDS: Carvedilol 3.125 MG TAB PO SCH (09:52)
[2019-01-02] MEDS: Timolol 0.5% Ophth Soln 5 ml Bottle EA EYE SCH (09:53)
[2019-01-02] MEDS: Dorzolamide HCl 2% Ophth Soln 10 ml Bottle EA EYE SCH (09:54)
[2019-01-02] MEDS: 1/2 NS w/KCL 20 mEq 1,000 ML IV SCH (09:54)
[2019-01-02] MEDS: Pantoprazole 40 MG VIAL IVP SCH (09:55)
--- NOTE | 2019-01-02 11:16 | RAD ---
EXAM: XR Abdomen 2 View DATE: 01/02/2019 9:00 AM INDICATION: Small bowel obstruction follow-up COMPARISON: Small bowel follow-through dated January 01, 2019. FINDING: The dilated loops of small bowel within the central abdomen are less prominent. There is no w contrast filling the colon. Lung bases are clear. There is stable postsurgical change of a left inguinal hernia repair. Scattered degenerative change is stable. IMPRESSION:Improvement in the small bowel dilatation within the central abdomen suggests resolution o f the previously seen partial small bowel obstruction.
--- NOTE | 2019-01-02 13:27 | PRG ---
DATE OF SERVICE: 01/02/2019 SUBJECTIVE: Michael Samuel is doing well today. His small-bowel follow-through is normal. Yesterday he has had bowel movements. He is tolerating a diet. OBJECTIVE: VITAL SIGNS: 98.5 degrees, 50, 139/56. LUNGS: Clear to auscultation. CARDIAC: Regular rate and rhythm without murmur or gallop. ABDOMEN: Soft, nondistended, flat, nontender. ASSESSMENT AND PLAN: Constipation. The patient does not have a prior surgical history to suggest adhesive disease. Small-bowel follow-through was normal. Admitting x-rays reveal constipation. We would recommend he take MiraLAX once or twice a day, fiber every day. I would recommend he be released today back to the half-way. I will see him as needed this hospitalization. Job ID: [id number]
[2019-01-02 16:07] VITALS: BP 134/87; TEMP 98.7
--- NOTE | 2019-01-02 20:23 | DIS ---
DATE OF ADMISSION: 01/01/2019 DATE OF DISCHARGE: 01/02/2019 DISPOSITION: The patient was discharged to group home. FINAL DIAGNOSES: 1. Small bowel obstruction with 2 adhesions, resolved. 2. Diabetes mellitus type 2 with hyperglycemia. 3. Essential hypertension. 4. Hyperlipidemia. 5. Coronary artery disease. 6. Degenerative joint disease. 7. Legally blind. 8. Cerebrovascular accident. 9. History of abdominal aortic aneurysm. CONDITION: Stable and improved. DIET: Heart healthy diet. MEDICATIONS: Please refer to medication discharge reconciliation form. ACTIVITY: As tolerated. Do not over exert yourself, no strenuous activities. DISCHARGE INSTRUCTIONS: If any fevers, chills, nausea, vomiting, chest pain, shortness of breath, bleeding, swelling, weakness, numbness to seek immediate medical attention. CONSULTANTS: Dr. Vasiliy Raymond. FOLLOWUP: Follow up with primary care physician in 1 week. SIGNIFICANT LABORATORY AND DIAGNOSTIC STUDIES: Included an abdominal series, which was normal. BRIEF HOSPITAL COURSE: Michael Samuel is a pleasant 73-year-old, hypertensive, diabetic male with history of coronary artery disease, who presented to the emergency room complaining of abdominal pain, found to have small bowel obstruction, for which an NG tube was placed. He was rehydrated with IV fluids. A small bowel series was done and was completely normal. Repeat KUB was also done and this was normal. The NG tube was removed. He has been ambulatory and tolerating oral intake, having multiple bowel movements. Denies any abdominal pain. Tolerating a regular diet. Discharged back to group home in stable condition. We will follow up as stated as above. On the day of discharge, during my [id number] meeting with the patient, I discussed all discharge instructions including the need for compliance with medication, followup and when to return to the emergency room for which he has verbalized understanding. TIME SPENT: Total discharge time spent, 35 minutes. Job ID: [id number] MTDD
--- NOTE | 2019-01-04 07:54 | CON ---
DATE OF CONSULTATION: HISTORY OF PRESENT ILLNESS: Michael Samuel is a 73-year-old black male, incarcerated for 13 years in [place]. He apparently was recently admitted, hospitalized for several days in [place]. He states he had some sort of probably a Gastrografin study and enemas that cleaned him out, and he was transferred back to the unit. Yesterday morning, he had a bowel movement. He reports having nausea and vomiting after eating, and his abdomen became firm. He was admitted. He was hospitalized in June 2018 for atypical chest pain thought secondary to viral gastroenteritis. [facility] During that hospitalization, EKG and troponins were obtained and were normal. The patient did have on 06/12/2018 Cardiolite stress test that was normal, 53% EF, no reversible ischemia. The patient was admitted to the hospitalist service on this occasion this morning. NG tube placed. He did not have much out. He reported passing some flatus. CAT scan obtained suggested a possible bowel obstruction without definitive transition zone. He did have significant right colon constipation and gas in his left colon, sigmoid, and rectum. The patient reports having had a colonoscopy in the last year. PAST MEDICAL HISTORY: Diabetes mellitus type 2, blindness, hypertension, and hyperlipidemia. He reports past MA, although had a negative Cardiolite stress test recently at this institution. December 27 to December 31 hospitalized at [facility] for partial bowel obstruction, resolved nonsurgically. History of stroke with right hemiparesis, resolved. History of some aneurysmal dilatation, uncertain of procedure performed. PAST SURGICAL HISTORY: Bilateral inguinal hernia repairs. No other abdominal surgeries. MEDICATIONS: 1. Aspirin. 2. Hydrochlorothiazide. 3. Lisinopril. 4. Metformin. 5. Pravastatin. 6. Ranitidine. TOBACCO USE: None. ALCOHOL USE: None. Incarcerated for 13 years. PHYSICAL EXAMINATION: VITAL SIGNS: Height 5 feet 11 inches, weight 148 pounds, 20 BMI. Temperature 98.8 degrees, heart rate 55, blood pressure 152/98. NG tube has put out about 200 mL this morning since being placed, nothing significant. LUNGS: Clear to auscultation. No wheezing. CARDIAC: Regular rate and rhythm without murmur or gallop. ABDOMEN: Soft, mildly distended, mildly tympanitic. No guarding. No rebound. EXTREMITIES: Unremarkable. LABORATORY DATA: White count 10 and hemoglobin 14. Basic metabolic profile and liver function tests normal. Glucose 103 to 109. Abdominal x-rays obtained later this morning after his CAT scan reveal findings as noted above. Some mildly dilated small bowel loops, nonspecific gas and stool in his right colon and transverse colon and gas in his left colon. CAT scan as noted above. Small-bowel follow-through obtained beginning study today reveals NG tube to be in proper position. One-hour film reveals some stagnant contrast in the stomach, but it does traverse into some distended proximal small bowel loops and has began to opacify the bowel. He has another x-ray ordered at 7 p.m. ASSESSMENT AND PLAN: 1. History suggestive of possible bowel obstruction, although there are no significant surgical procedures to suggest this. I would recommend continuous small-bowel follow-through, repeat abdominal x-rays in the morning. Continue NG tube suctioning, has sips and chips. We will make further decision based on clinical course. He does report having had a colonoscopy in the last year. 2. Diabetes mellitus. 3. Blindness. 4. Hypertension. 5. Negative nuclear stress test on June 12, 2018, at this institution. Job ID: [id number]
== END 2019-01-02 17:17 | DRG 390 ==
LOC: ERS 21:35 → SJJU 01-01 06:29
PROVIDERS: ADMIT Internal Medicine; ATTEND Internal Medicine
DX: K56.50 Intestinal adhesions [bands], unspecified as to partial versus complete obstruction (principal); I10 Essential (primary) hypertension; E78.5 Hyperlipidemia, unspecified; I25.10 Atherosclerotic heart disease of native coronary artery without angina pectoris; M19.91 Primary osteoarthritis, unspecified site; H54.8 Legal blindness, as defined in USA; H40.9 Unspecified glaucoma; K59.00 Constipation, unspecified; E11.65 Type 2 diabetes mellitus with hyperglycemia; I25.2 Old myocardial infarction; Z86.73 Personal history of transient ischemic attack (TIA), and cerebral infarction without residual deficits; Z98.890 Other specified postprocedural states; Z79.82 Long term (current) use of aspirin; Z79.84 Long term (current) use of oral hypoglycemic drugs
CPT/HCPCS: 36415; 36416; 74019; 74022; 74177; 74250; 80048; 80053; 83605; 83690; 83735; 84100; 85025; 96374; 96375; C9113; J1650; J2270; J2405; J3480; Q9966